=== PATIENT | female | born 1965 | race Hispanic/Latino ===

== ENCOUNTER 2022-02-15 17:56 | Emergency (ER) | payer OTHER ==
[~2022-02-15] VITALS: Ht 157.5 cm; Wt 59.9 kg
[2022-02-15 17:56] VITALS: BP 126/85
[2022-02-15] MEDS ORDERED: TORADOL IM ONE (18:30)
[2022-02-15] MEDS ORDERED: TORADOL ONE (19:04)
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
[2022-02-15 19:11] VITALS: BP 121/94
[2022-02-15] MEDS ORDERED: PREDNISONE PO STA (19:17)
[2022-02-15] MEDS ORDERED: TYLENOL PO STA (19:17)
[2022-02-15] MEDS ORDERED: PREDNISONE ONE (19:30)
[2022-02-15] MEDS ORDERED: TYLENOL PO ONE (19:31)
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
[2022-02-15 20:00] VITALS: BP 123/80
== END 2022-02-15 20:00 | disposition home or self-care (01) ==
LOC: ER 17:56
DX: S13.4XXA Sprain of ligaments of cervical spine, initial encounter (principal); M62.838 Other muscle spasm; R53.1 Weakness; M54.16 Radiculopathy, lumbar region; V89.2XXA Person injured in unspecified motor-vehicle accident, traffic, initial encounter; Y93.89 Activity, other specified; Y92.89 Other specified places as the place of occurrence of the external cause; Y99.8 Other external cause status
CPT/HCPCS: 96372; 99284; 72125; 72131; J1885; J7512; A9150